=== PATIENT | female | born 1950 ===

== ENCOUNTER 2019-07-30 07:55 | Inpatient (IN) | payer OTHER ==
[~2019-07-30] VITALS: Ht 162.6 cm; Wt 52.2 kg
== END 2019-08-01 16:23 | disposition home or self-care (01) | DRG 308 ==
LOC: ER 07:55 → MEDJ 16:56
PROVIDERS: ADMIT Internal Medicine
PROC: B246ZZZ Ultrasonography of Right and Left Heart (ICD-10-PCS; principal; 2019-07-30)
PROC: 4A12X4Z Monitoring of Cardiac Electrical Activity, External Approach (ICD-10-PCS; 2019-07-30)
DX: I48.0 Paroxysmal atrial fibrillation (principal); I50.21 Acute systolic (congestive) heart failure; I11.0 Hypertensive heart disease with heart failure; I08.1 Rheumatic disorders of both mitral and tricuspid valves; Z79.01 Long term (current) use of anticoagulants